=== PATIENT | male | born 1990 | race African-American/Black ===

== ENCOUNTER 2022-04-12 12:16 | Emergency (ER) | payer SELFPAY ==
[~2022-04-12] VITALS: Ht 177.8 cm; Wt 141.0 kg
[2022-04-12] MEDS ORDERED: CLONIDINE 0.2MG TABLET PO ONE ×2 (15:30→17:30)
[2022-04-12] MEDS ORDERED: IBUPROFEN 400MG TABLET PO ONE ×2 (15:30→17:30)
[2022-04-12 15:54] LABS: BASOPHILS % 0.4 % (0.0-2.0); EOSINOPHILS % 0.9 % (0.0-5.0); HEMATOCRIT. 43.9 % (42.0-52.0); HEMOGLOBIN. 14.6 g/dL (14.0-18.0); LYMPHOCYTES % 20.3 % (20.0-50.0); MEAN CORPUSCULAR VOLUME 90.4 fL (80.0-94.0); MEAN PLATELET VOLUME 10.2 fl (7.4-10.4); MONOCYTES % 8.9 % (2.0-8.0); NEUTROPHILS % 69.5 % (40.0-76.0); PLATELET 278 x1000/uL (130-400); RED BLOOD CELL COUNT 4.86 mill/uL (4.7-6.1); RED CELL DISTRIBUTION WIDTH 14.2 % (11.6-14.6)
[2022-04-12 15:58] LABS: CHLORIDE 106 mEq/L (98-107)
[2022-04-12 17:10] VITALS: BP 170/102
[2022-04-12] MEDS ORDERED: LISI10TA26 MT (17:50)
[2022-04-12] MEDS ORDERED: INDO-13 MT (17:52)
== END 2022-04-12 18:09 | disposition home or self-care (01) ==
LOC: ER 12:16
DX: M79.605 Pain in left leg (principal); M79.604 Pain in right leg; M25.561 Pain in right knee; I10 Essential (primary) hypertension; M10.9 Gout, unspecified
CPT/HCPCS: 36415; 71045; 73560; 80053; 83880; 84484; 84550; 85025; 93005; 93970; 99285